=== PATIENT | female | born 1945 | race Caucasian/White ===

== ENCOUNTER 2024-01-29 19:34 | Inpatient (IN) ==
[2024-01-29] MEDS ORDERED: IOPAMIDOL 100 ML BOTTLE IV ONE (19:35)
[2024-01-29] MEDS: 0.9 % SODIUM CHLORIDE 500 ML IV ONE (20:22)
[2024-01-29] MEDS: fentaNYL 100 MCG/2 ML VIAL IV ONE (20:22)
[2024-01-29 20:36] LABS: Basophils # (Auto) 0.03 K/mcL (0.00-0.30); Basophils % (Auto) 0.2 % (0.0-2.0); Eosinophils # (Auto) 0 K/mcL (0.00-0.70); Eosinophils % (Auto) 0 % (0.0-7.0); Hematocrit 38.6 % (34.1-44.9); Hemoglobin 12.3 g/dL (11.2-15.7); Lymphocytes # (Auto) 0.51 K/mcL (1.50-4.80); Mean Corpuscular HGB Conc 31.9 g/dL (31.0-36.0); Monocytes # (Auto) 0.45 K/mcL (0.10-0.90); Monocytes % (Auto) 3.5 % (1.0-12.0); Platelet Count 204 K/mcL (140-440); RBC 4.24 M/mcL (3.59-5.38); Red Cell Distribution Width 14.4 % (11.5-14.5); WBC 12.9 K/mcL (4.5-11.0)
[2024-01-29 20:56] LABS: ALT/SGPT 11 U/L (<40); AST/SGOT 24 U/L (<32); Albumin 3.4 gm/dL (3.2-5.2); Albumin/Globulin Ratio 1.1 (1.0-2.3); Alkaline Phosphatase 150 U/L (39-117); Bilirubin,Total 0.9 mg/dL (0.1-1.0); Blood Urea Nitrogen 15 mg/dL (8-23); Carbon Dioxide 24 mmol/L (22-30); Chloride 98 mmol/L (96-108); Globulin 3.2 gm/dL (2.2-3.7); Glomerular Filtration Rate 42; Glucose 143 mg/dL (70-105); Potassium 2.6 mmol/L (3.3-5.1); Sodium 137 mmol/L (133-145)
[2024-01-29] MEDS: cefTRIAXone 1 GM VIAL IV ONE (21:13)
[2024-01-29] MEDS: POTASSIUM CHLORIDE 20 MEQ/10 ML VIAL IV ONE (21:14)
[2024-01-29] MEDS: POTASSIUM CHLORIDE 40 MEQ in DEXTROSE 5% IN WATER 500 ML IV ONE (21:25)
[2024-01-29 21:31] LABS: Appearance,Urine Cloudy (Clear); Bacteria,Urine Many /hpf (0); Color,Urine Brown; Culture Indicated,Urine No; Glucose,Urine (UA) Negative (Negative); Ketones,Urine 15 mg/dL (Negative); Leukocyte Esterase,Urine Large /uL (Negative); Nitrate,Urine Negative (Negative); Protein,Urine >=300 mg/dL (Negative); Specific Gravity,Urine >= 1.030 (1.000-1.035); Urine Blood Large ery/mcL (Negative); Urine RBC 21 /hpf (0-3); Urine Squamous Epithelial Cell 9 /hpf (0-4); Urine WBC > 182 /hpf (0-4)
[2024-01-29] MEDS: MAGNESIUM SULFATE 1 GM/100 ML BAG IV ONE ×2 (22:24→22:56)
[2024-01-29] MEDS: PIPERACILLIN SODIUM/TAZOBACTAM 4.5 GM in DEXTROSE 5% IN WATER 50 ML IV SCH (22:24)
[2024-01-29 22:48] LABS: C-Reactive Protein 34.3 mg/dL (0.03-0.80)
[2024-01-29] MEDS: PIPERACILLIN SODIUM/TAZOBACTAM 4.5 GM in DEXTROSE 5% IN WATER 50 ML IV ONE (22:56)
[2024-01-29] MEDS: MAGNESIUM SULFATE 8.12 MEQ/2 ML VIAL ONE (22:56)
[2024-01-29] MEDS: POTASSIUM CHLORIDE 20 MEQ PACKET PO ONE (22:56)
[2024-01-29] MEDS: LACTATED RINGERS 1,000 ML IV SCH (23:23)
[2024-01-30] MEDS ORDERED: POLYETHYLENE GLYCOL 3350 17 GM PACKET PO PRN (00:17)
[2024-01-30] MEDS ORDERED: METOPROLOL TARTRATE 5 MG/5 ML VIAL IV SCH (00:17)
[2024-01-30] MEDS ORDERED: ONDANSETRON 4 MG/2 ML VIAL IV PRN (00:17)
[2024-01-30] MEDS ORDERED: SENNOSIDES 1 TABLET PO PRN (00:17)
[2024-01-30] MEDS ORDERED: hydrOXYzine 25 MG TABLET PO PRN (00:17)
[2024-01-30] MEDS ORDERED: MAG HYDROX/AL HYDROX/SIMETH 30 ML ORAL.SUSP PO PRN (00:17)
[2024-01-30] MEDS ORDERED: NALOXONE HCL 0.4 MG/ML VIAL IV PRN (00:17)
[2024-01-30] MEDS: LACTATED RINGERS 1,000 ML IV SCH (00:50)
[2024-01-30] MEDS ORDERED: POTASSIUM CHLORIDE 20 MEQ PACKET PO ONE (01:00)
[2024-01-30] MEDS: morphine 4 MG/ML VIAL IV PRN (01:25)
[2024-01-30] MEDS: POTASSIUM CHLORIDE 20 MEQ PACKET ONE (02:46)
[2024-01-30] MEDS: POTASSIUM CHLORIDE 20 MEQ PACKET PO ONE (02:46)
[2024-01-30] MEDS: morphine 4 MG/ML VIAL ONE ×2 (05:14→05:17)
[2024-01-30] MEDS: 0.9 % SODIUM CHLORIDE 10 ML SYRINGE IV SCH (05:50)
[2024-01-30 06:20] LABS: Basophils # (Auto) 0.05 K/mcL (0.00-0.30); Basophils % (Auto) 0.3 % (0.0-2.0); Eosinophils # (Auto) 0 K/mcL (0.00-0.70); Eosinophils % (Auto) 0 % (0.0-7.0); Hematocrit 34.5 % (34.1-44.9); Hemoglobin 11.1 g/dL (11.2-15.7); Lymphocytes # (Auto) 1.34 K/mcL (1.50-4.80); Lymphocytes % (Auto) 8.6 % (15.5-49.0); Mean Cell Volume 91.5 fL (80.0-100.0); Mean Corpuscular HGB Conc 32.2 g/dL (31.0-36.0); Mean Platelet Volume 11.3 fL (8.8-12.5); Monocytes # (Auto) 0.65 K/mcL (0.10-0.90); Monocytes % (Auto) 4.2 % (1.0-12.0); Neutrophils % (Auto) 86.5 % (38.0-78.0); Platelet Count 212 K/mcL (140-440); RBC 3.77 M/mcL (3.59-5.38); Red Cell Distribution Width 14.8 % (11.5-14.5); WBC 15.6 K/mcL (4.5-11.0)
[2024-01-30 06:45] LABS: ALT/SGPT 10 U/L (<40); AST/SGOT 21 U/L (<32); Albumin 3.2 gm/dL (3.2-5.2); Albumin/Globulin Ratio 1.1 (1.0-2.3); Alkaline Phosphatase 133 U/L (39-117); Bilirubin,Direct 0.4 mg/dL (<0.3); Bilirubin,Total 0.6 mg/dL (0.1-1.0); Blood Urea Nitrogen 16 mg/dL (8-23); Calcium 8.7 mg/dL (8.6-10.4); Carbon Dioxide 24 mmol/L (22-30); Chloride 101 mmol/L (96-108); Glomerular Filtration Rate 53; Glucose 124 mg/dL (70-105); Lactate Dehydrogenase 188 U/L (135-225); Phosphorous 3.2 mg/dL (2.5-4.5); Potassium 4.7 mmol/L (3.3-5.1); Sodium 138 mmol/L (133-145); Triglycerides 73 mg/dL (<150); Uric Acid 4.9 mg/dL (2.5-8.0)
[2024-01-30] MEDS ORDERED: SCOPOLAMINE 1 PATCH PATCH TOPICAL PRN (07:23)
[2024-01-30] MEDS: KETOROLAC 15 MG/ML VIAL IV PRN (07:51)
[2024-01-30] MEDS: PANTOPRAZOLE 40 MG VIAL IV SCH (07:52)
[2024-01-30] MEDS: ACETAMINOPHEN 650 MG/65 ML BAG IV PRN (08:57)
[2024-01-30] MEDS: GABAPENTIN 300 MG CAPSULE PO SCH ×2 (08:59→14:29)
[2024-01-30] MEDS: HEPARIN 5,000 UNIT/ML VIAL SQ SCH (08:59)
[2024-01-30] MEDS ORDERED: ONDANSETRON 4 MG/2 ML VIAL ONE (11:16)
[2024-01-30] MEDS ORDERED: ROCURONIUM 10 MG/ML ML IV ONE (11:16)
[2024-01-30] MEDS ORDERED: PROPOFOL 200 MG/20 ML VIAL IV ONE (11:17)
[2024-01-30] MEDS ORDERED: fentaNYL 100 MCG/2 ML VIAL ONE (11:17)
[2024-01-30] MEDS: IOVERSOL 50 ML VIAL IV ONE (12:10)
[2024-01-30] MEDS ORDERED: tiZANidine 4 MG TABLET PO PRN (12:19)
[2024-01-30] MEDS: LIDOCAINE 2% URO-JET 10 ML JEL.PF.APP UR ONE (12:24)
[2024-01-30] MEDS ORDERED: SUGAMMADEX SODIUM 200 MG/2 ML VIAL IV ONE (12:24)
[2024-01-30] MEDS: PIPERACILLIN SODIUM/TAZOBACTAM 4.5 GM in DEXTROSE 5% IN WATER 100 ML IV SCH (14:10)
[2024-01-30] MEDS: GABAPENTIN 400 MG CAPSULE PO SCH (20:24)
[2024-01-30] MEDS: MONTELUKAST 10 MG TABLET PO SCH (20:24)
[2024-01-30] MEDS ORDERED: GABAPENTIN 400 MG CAPSULE PO SCH (21:00)
[2024-01-31 06:39] LABS: Basophils # (Auto) 0.02 K/mcL (0.00-0.30); Basophils % (Auto) 0.2 % (0.0-2.0); Eosinophils # (Auto) 0.06 K/mcL (0.00-0.70); Eosinophils % (Auto) 0.5 % (0.0-7.0); Hematocrit 40.3 % (34.1-44.9); Hemoglobin 11.3 g/dL (11.2-15.7); Lymphocytes # (Auto) 1.13 K/mcL (1.50-4.80); Lymphocytes % (Auto) 10.2 % (15.5-49.0); Mean Cell Volume 106.1 fL (80.0-100.0); Mean Platelet Volume 10.8 fL (8.8-12.5); Monocytes # (Auto) 0.52 K/mcL (0.10-0.90); Monocytes % (Auto) 4.7 % (1.0-12.0); Neutrophils % (Auto) 84.1 % (38.0-78.0); Platelet Count 185 K/mcL (140-440); Red Cell Distribution Width 15.4 % (11.5-14.5); WBC 11.1 K/mcL (4.5-11.0)
[2024-01-31 06:59] LABS: ALT/SGPT 15 U/L (<40); AST/SGOT 32 U/L (<32); Albumin 2.7 gm/dL (3.2-5.2); Albumin/Globulin Ratio 0.8 (1.0-2.3); Alkaline Phosphatase 159 U/L (39-117); Bilirubin,Direct 0.3 mg/dL (<0.3); Bilirubin,Total 0.5 mg/dL (0.1-1.0); Blood Urea Nitrogen 25 mg/dL (8-23); Calcium 8.8 mg/dL (8.6-10.4); Carbon Dioxide 22 mmol/L (22-30); Chloride 102 mmol/L (96-108); Globulin 3.3 gm/dL (2.2-3.7); Glomerular Filtration Rate 53; Glucose 103 mg/dL (70-105); Lactate Dehydrogenase 263 U/L (135-225); Phosphorous 3.9 mg/dL (2.5-4.5); Potassium 4.8 mmol/L (3.3-5.1); Sodium 138 mmol/L (133-145); Triglycerides 125 mg/dL (<150); Uric Acid 4.3 mg/dL (2.5-8.0)
[2024-01-31] MEDS ORDERED: VANCOMYCIN PER PHARMACY IV SCH (08:07)
[2024-01-31] MEDS: DILTIAZEM 180 MG CAP.XL.24H PO SCH (09:17)
[2024-01-31] MEDS: DILTIAZEM 120 MG CAP.XL.24H PO SCH (09:18)
[2024-01-31] MEDS: DULoxetine 30 MG CAPSULE PO SCH (09:18)
[2024-01-31] MEDS: ATORVASTATIN 40 MG TABLET PO SCH (09:22)
[2024-01-31] MEDS: VANCOMYCIN 1,250 MG in 0.9 % SODIUM CHLORIDE 500 ML IV SCH (09:26)
[2024-02-01 06:24] LABS: Basophils # (Auto) 0.04 K/mcL (0.00-0.30); Basophils % (Auto) 0.4 % (0.0-2.0); Eosinophils # (Auto) 0.14 K/mcL (0.00-0.70); Eosinophils % (Auto) 1.3 % (0.0-7.0); Hematocrit 31.9 % (34.1-44.9); Hemoglobin 9.9 g/dL (11.2-15.7); Lymphocytes # (Auto) 1.75 K/mcL (1.50-4.80); Lymphocytes % (Auto) 15.7 % (15.5-49.0); Mean Cell Volume 94.7 fL (80.0-100.0); Mean Platelet Volume 10.9 fL (8.8-12.5); Monocytes % (Auto) 4.5 % (1.0-12.0); Neutrophils % (Auto) 77.2 % (38.0-78.0); Platelet Count 218 K/mcL (140-440); RBC 3.37 M/mcL (3.59-5.38); Red Cell Distribution Width 14.9 % (11.5-14.5); WBC 11.2 K/mcL (4.5-11.0)
[2024-02-01 06:25] LABS: ALT/SGPT 20 U/L (<40); AST/SGOT 36 U/L (<32); Albumin 2.8 gm/dL (3.2-5.2); Albumin/Globulin Ratio 0.9 (1.0-2.3); Alkaline Phosphatase 173 U/L (39-117); Bilirubin,Direct 0.3 mg/dL (<0.3); Bilirubin,Total 0.5 mg/dL (0.1-1.0); Blood Urea Nitrogen 21 mg/dL (8-23); Calcium 8.9 mg/dL (8.6-10.4); Carbon Dioxide 23 mmol/L (22-30); Chloride 103 mmol/L (96-108); Globulin 3.2 gm/dL (2.2-3.7); Glomerular Filtration Rate 60; Glucose 86 mg/dL (70-105); Lactate Dehydrogenase 183 U/L (135-225); Phosphorous 3.3 mg/dL (2.5-4.5); Potassium 3.7 mmol/L (3.3-5.1); Sodium 138 mmol/L (133-145); Triglycerides 149 mg/dL (<150); Uric Acid 3.8 mg/dL (2.5-8.0)
[2024-02-01] MEDS: IPRATROPIUM/ALBUTEROL 3 ML AMPUL.NEB NEB PRN (07:36)
[2024-02-01] MEDS: LEVOTHYROXINE 75 MCG TABLET PO SCH (09:27)
[2024-02-01] MEDS ORDERED: SUCRETS LOZENGE PO PRN (09:45)
[2024-02-01] MEDS: ALBUMIN HUMAN 12.5 GM/50 ML VIAL IV ONE (11:01)
[2024-02-01] MEDS: FUROSEMIDE 40 MG/4 ML VIAL IV ONE (11:02)
[2024-02-01] MEDS: BENZOCAINE/MENTHOL 1 LOZENGE PO PRN (21:13)
[2024-02-02 08:56] LABS: Basophils # (Auto) 0.06 K/mcL (0.00-0.30); Basophils % (Auto) 0.6 % (0.0-2.0); Hematocrit 34.5 % (34.1-44.9); Lymphocytes # (Auto) 1.45 K/mcL (1.50-4.80); Lymphocytes % (Auto) 14.3 % (15.5-49.0); Mean Cell Volume 92.2 fL (80.0-100.0); Mean Corpuscular HGB Conc 31.9 g/dL (31.0-36.0); Mean Platelet Volume 10.5 fL (8.8-12.5); Monocytes # (Auto) 0.52 K/mcL (0.10-0.90); Monocytes % (Auto) 5.1 % (1.0-12.0); Neutrophils % (Auto) 75.9 % (38.0-78.0); Platelet Count 265 K/mcL (140-440); RBC 3.74 M/mcL (3.59-5.38); Red Cell Distribution Width 14.4 % (11.5-14.5); WBC 10.2 K/mcL (4.5-11.0)
[2024-02-02 09:09] LABS: ALT/SGPT 38 U/L (<40); AST/SGOT 45 U/L (<32); Albumin 3.4 gm/dL (3.2-5.2); Albumin/Globulin Ratio 1.4 (1.0-2.3); Alkaline Phosphatase 205 U/L (39-117); Bilirubin,Direct 0.2 mg/dL (<0.3); Bilirubin,Total 0.4 mg/dL (0.1-1.0); Blood Urea Nitrogen 14 mg/dL (8-23); Calcium 8.6 mg/dL (8.6-10.4); Carbon Dioxide 29 mmol/L (22-30); Chloride 101 mmol/L (96-108); Globulin 2.4 gm/dL (2.2-3.7); Glomerular Filtration Rate 69; Glucose 108 mg/dL (70-105); Lactate Dehydrogenase 220 U/L (135-225); Phosphorous 3.3 mg/dL (2.5-4.5); Potassium 3.6 mmol/L (3.3-5.1); Sodium 143 mmol/L (133-145); Triglycerides 141 mg/dL (<150); Uric Acid 3.6 mg/dL (2.5-8.0)
[2024-02-02 14:32] VITALS: TEMP 97.8; O2SAT 97
== END 2024-02-02 14:30 | disposition home or self-care (01) | DRG 872 ==
LOC: ED 19:34 → MEDSUR 23:38
PROVIDERS: ADMIT Student in an Organized Health Care Education/Training Program; ATTEND Internal Medicine